=== PATIENT | female | born 1955 | race Hispanic/Latino ===

== ENCOUNTER 2017-08-10 09:53 | Emergency (ER) | payer MEDICAID ==
[2017-08-10 10:45] VITALS: RESP 18; O2SAT 98
--- NOTE | 2017-08-10 11:58 | RAD ---
PROCEDURE: Radiographs of the Lumbar Spine. HISTORY: pain, no trauma COMPARISON: No prior. FINDINGS: BONES: Vertebral bodies maintained in height. Grade 1 anterolisthesis at L4-5. Normal alignment maintained elsewhere. Transverse processes and posterior elements appear intact. DISC SPACES: Unremarkable. OTHER FINDINGS: None. IMPRESSION: Grade 1 anterolisthesis at L4-5.
[2017-08-10] MEDS ORDERED: Oxycodone/Acetaminophen 5/325 mg Tab PO STA (12:17)
--- NOTE | 2017-08-10 12:21 | C.PDOC ---
History Of Present Illness Patient c/o left low back pain, radiating to her left buttock and left groin for 3 days. Pt has h/o RA, SLE, kidney stones. Patient denies any injuries. Pain is worse with movement and bending. Patient denies any urinary symptoms at this time. Time Seen by Provider: 08/10/17 11:17 Chief Complaint (Nursing): Back Pain History Per: Patient History/Exam Limitations: no limitations Onset/Duration Of Symptoms: Days Current Symptoms Are (Timing): Still Present Severity: Moderate Past Medical History Reviewed: Historical Data, Nursing Documentation, Vital Signs Vital Signs: Last Vital Signs Temp 98.5 F 08/10/17 10:36 Pulse 83 08/10/17 10:36 Resp 18 08/10/17 10:36 BP 157/87 H 08/10/17 10:36 Pulse Ox 98 08/10/17 12:53 - Medical History PMH: HTN, Hyperlipidemia, Rheumatoid Arthritis Surgical History: No Surg Hx Family History: States: No Known Family Hx - Social History Hx Alcohol Use: No Hx Substance Use: No - Immunization History Hx Tetanus Toxoid Vaccination: No Hx Influenza Vaccination: No Hx Pneumococcal Vaccination: No Review Of Systems Except As Marked, All Systems Reviewed And Found Negative. Genitourinary: Negative for: Dysuria, Incontinence Musculoskeletal: Positive for: Back Pain (left low back pain) Physical Exam - Physical Exam Appears: Non-toxic, No Acute Distress Skin: Normal Color, Warm Head: Atraumatic, Normacephalic Eye(s): bilateral: Normal Inspection Nose: Normal Oral Mucosa: Moist Neck: Supple Chest: Symmetrical Cardiovascular: Rhythm Regular Respiratory: Normal Breath Sounds, No Accessory Muscle Use, No Rales, No Rhonchi , No Wheezing Gastrointestinal/Abdominal: Normal Exam, Soft, No Tenderness Back: Normal Inspection, No CVA Tenderness Extremity: Normal ROM Neurological/Psych: Oriented x3, Normal Speech, Normal Motor, Normal Sensation ED Course And Treatment O2 Sat by Pulse Oximetry: 98 (RA) Pulse Ox Interpretation: Normal - Other Rad No standard instances X-Ray: Viewed By Me, Read By Radiologist Interpretation: PROCEDURE: Radiographs of the Lumbar Spine. HISTORY: pain, no trauma. COMPARISON: No prior. FINDINGS: BONES: Vertebral bodies maintained in height. Grade 1 anterolisthesis at L4-5. Normal alignment maintained elsewhere. Transverse processes and posterior elements appear intact. DISC SPACES: Unremarkable. OTHER FINDINGS: None. IMPRESSION: Grade 1 anterolisthesis at L4-5. Progress Note: LS Spine X-Ray and UA ordered. Percocet PO given to patient. Macrobid was given for UTI. On re-evaluation patient feels better and is stable to be d/c home with PMD follow up. Disposition - Disposition Disposition: HOME/ ROUTINE Disposition Time: 12:50 Condition: STABLE Additional Instructions: Follow up with PMD within 1-2 days. Return to ED if feel worse. Prescriptions: Nitrofurantoin Macrocrystals [Macrobid] 1 cap PO BID #14 cap oxyCODONE/Acetaminophen [Percocet 5/325 mg Tab] 1 tab PO QID PRN #20 tab PRN Reason: Pain Instructions: Urinary Tract Infection in Women (ED), Lumbar Radiculopathy (ED) Forms: [employer] (Dutch) - Clinical Impression Clinical Impression: Lumbar radiculopathy, UTI (urinary tract infection) - PA / LEAD [employer]ESSMAN / Resident Statement MD/DO has reviewed & agrees with the documentation as recorded. - Scribe Statement The provider has reviewed the documentation as recorded by the Renettaibe Griffin Jeff Provider Attestation All medical record entries made by the Renettaibaruna were at my direction and personally dictated by me. I have reviewed the chart and agree that the record accurately reflects my personal performance of the history, physical exam, medical decision making, and the department course for this patient. I have also personally directed, reviewed, and agree with the discharge instructions and disposition.
[2017-08-10 12:30] LABS: SQUAMOUS EPITHIAL 6 /hpf (0-5); URINE BACTERIA RARE (<OCC); URINE BILIRUBIN NEGATIVE (NEGATIVE); URINE BLOOD 1+ (NEGATIVE); URINE CLARITY Clear (Clear); URINE COLOR Yellow (YELLOW); URINE GLUCOSE (UA) NORMAL (Normal); URINE LEUKOCYTE ESTERASE 1+ Leu/uL (Negative); URINE NITRATE NEGATIVE (NEGATIVE); URINE PROTEIN NEGATIVE (NEGATIVE); URINE UROBILINOGEN NORMAL mg/dL (0.2-1.0)
[2017-08-10] MEDS ORDERED: Oxycodone/Acetaminophen 5/325 mg Tab ONE (12:33)
[2017-08-10 13:32] VITALS: BP 136/87; PULSE 80; TEMP 98
== END 2017-08-10 13:19 | disposition home or self-care (01) ==
LOC: C.ER 09:53
DX: M54.16 Radiculopathy, lumbar region (principal); N39.0 Urinary tract infection, site not specified